=== PATIENT | male | born 1960 | race Two or more races ===

== ENCOUNTER 2023-08-28 14:14 | Inpatient (IN) | payer MEDICAID, OTHER ==
[~2023-08-28] VITALS: Ht 177.8 cm; Wt 67.5 kg
[2023-08-28 14:33] LABS: Basophils # (auto) 0 10 ^3/uL (0-0.2); Basophils % (auto) 0.2 % (0.0-2.0); Eosinophils # (auto) 0.2 10 ^3/uL (0-0.8); Eosinophils % (auto) 1.3 % (0.0-7.0); Hematocrit 51.2 % (41.0-53.0); Hemoglobin 17.2 g/dL (13.5-17.5); Lymphocytes % (auto) 8.5 % (10.0-50.0); Mean Corpuscular Hemoglobin 29.3 pg (28.0-32.0); Mean Corpuscular Hgb Conc. 33.6 g/dL (32.0-36.0); Monocytes # (auto) 0.7 10 ^3/uL (0-1.3); Monocytes % (auto) 6.3 % (0.0-12.0); Neutrophils # (auto) 9.8 10 ^3/uL (1.6-8.6); Neutrophils % (auto) 83.7 % (37.0-80.0); Nucleated Red Blood Cells % 0.1 %; Red Blood Cells 5.89 10^6/uL (4.5-5.90); White Blood Cell 11.7 10^3/uL (4.4-10.8)
[2023-08-28 14:37] LABS: Chloride 97 mmol/L (98-107); Potassium 4.1 mmol/L (3.5-5.1); Sodium 129 mmol/L (136-145)
[2023-08-28 14:38] LABS: Anion Gap 9 (5-15); Calcium 10.3 mg/dL (8.7-10.4); Carbon Dioxide 23 mmol/L (20-30)
[2023-08-28 14:44] LABS: Blood Urea Nitrogen 21 mg/dL (9-23)
[2023-08-28 15:04] LABS: Glucose 658 mg/dL (74-106)
[2023-08-28] MEDS: MORPHINE SULFATE 4 MG/ML SYR/VIAL IV ONE ×2 (15:58→20:06)
[2023-08-28] MEDS: ASPirin 81 mg TAB PO ONE (16:01)
[2023-08-28] MEDS: ONDANSETRON HCL 4 MG/2 ML VIAL IV ONE ×2 (16:02→20:06)
[2023-08-28 16:42] VITALS: PULSE 107; RESP 20; O2SAT 92
[2023-08-28] MEDS: InsuLIN REG 1unit/0.01ml Soln (100units/ml) IV ONE (16:48)
[2023-08-28 19:08] LABS: INR 1.01 (0.9-1.15); Partial Thromboplastin Time 25.1 SEC (24.5-34.5); Prothrombin Time 10.7 sec (9.3-11.8)
[2023-08-28] MEDS: SODIUM CHLORIDE 0.9% 1,000 ML IV ONE ×2 (19:17→20:14)
[2023-08-28 19:30] VITALS: PULSE 99; RESP 16; O2SAT 93
[2023-08-28] MEDS: SODIUM CHLORIDE 0.9% 1,000 ML IV SCH (20:07)
[2023-08-28] MEDS: IOHEXOL 350 MG/ML 100ML IJ ONE (20:22)
[2023-08-28] MEDS ORDERED: DEXTROSE (50%) 50ML SYRG IV PRN (21:30)
[2023-08-28 21:57] LABS: Urine Bacteria None Seen /hpf (None Seen)
[2023-08-28 22:08] LABS: Urine Blood Negative /uL (Negative); Urine Clarity Clear (Clear); Urine Color Light-Yellow (Yellow); Urine Protein, UAD TRACE (Negative); Urine Specific Gravity 1.049 (1.001-1.035); Urine Urobilinogen Normal (Negative); Urine WBC 1 /hpf (0 - 3); Urine pH 5.5 (5.0-9.0)
[2023-08-28 22:09] LABS: Basophils # (auto) 0 10 ^3/uL (0-0.2); Basophils % (auto) 0.2 % (0.0-2.0); Eosinophils # (auto) 0 10 ^3/uL (0-0.8); Eosinophils % (auto) 0.1 % (0.0-7.0); Hematocrit 37.5 % (41.0-53.0); Hemoglobin 12.3 g/dL (13.5-17.5); Lymphocytes # (auto) 0.5 10 ^3/uL (0.4-5.4); Lymphocytes % (auto) 4.3 % (10.0-50.0); Mean Corpuscular Hemoglobin 28.9 pg (28.0-32.0); Mean Corpuscular Hgb Conc. 32.8 g/dL (32.0-36.0); Mean Corpuscular Volume 88.3 fL (80.0-100.0); Monocytes # (auto) 0.4 10 ^3/uL (0-1.3); Neutrophils # (auto) 9.7 10 ^3/uL (1.6-8.6); Neutrophils % (auto) 91.4 % (37.0-80.0); Red Blood Cells 4.25 10^6/uL (4.5-5.90); White Blood Cell 10.6 10^3/uL (4.4-10.8)
[2023-08-28 22:15] LABS: Amphetamine Screen, Urine Neg (NEGATIVE); Barbiturate Scree,Urine Neg (NEGATIVE); Benzodiazephine Screen, Urine Neg (NEGATIVE); Cannabinoid Screen, Urine Neg (NEGATIVE); Cocaine Screen, Urine Neg (NEGATIVE); Opiate Scree,Urine Neg (NEGATIVE); Phencyclidine Screen, Urine Neg (NEGATIVE)
[2023-08-28] MEDS: ACCU-CHEK COMFORT CURVE STRIP VI SCH (22:19)
[2023-08-28] MEDS: InsuLIN REG 1unit/0.01ml Soln (100units/ml) SC SCH (22:25)
[2023-08-28 22:26] LABS: Alanine Aminotransferase 10 U/L (7-40); Albumin 2.7 g/dL (3.2-4.8); Alkaline Phosphatase 72 U/L (46-116); Amylase < 20 U/L (30-118); Aspartate Aminotransferase < 8 U/L (13-40); Lipase 18 U/L (12-53)
[2023-08-28 22:27] LABS: Bilirubin, Total 0.4 mg/dL (0.2-1.0); Total Protein 4.4 g/dL (5.7-8.2)
[2023-08-28] MEDS: PANTOPRAZOLE 40 MG/10 ML VIAL INJ IV SCH (22:29)
[2023-08-28] MEDS: PIPERACILLIN-TAZOB 3.375GM 100 ML IV SCH (22:34)
[2023-08-28 23:00] LABS: Bilirubin, Direct 0.2 mg/dL (<0.3)
[2023-08-28 23:07] LABS: Platelet Estimate Decreased
[2023-08-29] MEDS: MORPHINE SULFATE 4 MG/ML SYR/VIAL IV PRN (00:22)
[2023-08-29] MEDS: ONDANSETRON HCL 4 MG/2 ML VIAL IV PRN (00:22)
[2023-08-29] MEDS: PANTOPRAZOLE 40mg/50ML NS AE 50 ML IV SCH (02:37)
[2023-08-29 05:18] LABS: Anion Gap 6 (5-15); Carbon Dioxide 27 mmol/L (20-30); Chloride 105 mmol/L (98-107); Potassium 3.3 mmol/L (3.5-5.1); Sodium 138 mmol/L (136-145)
[2023-08-29 05:19] LABS: Calcium 9.8 mg/dL (8.7-10.4)
[2023-08-29 05:23] LABS: Basophils # (auto) 0 10 ^3/uL (0-0.2); Basophils % (auto) 0.4 % (0.0-2.0); Eosinophils # (auto) 0.2 10 ^3/uL (0-0.8); Eosinophils % (auto) 1.1 % (0.0-7.0); Hematocrit 46.7 % (41.0-53.0); Hemoglobin 15.7 g/dL (13.5-17.5); Lymphocytes # (auto) 1.1 10 ^3/uL (0.4-5.4); Lymphocytes % (auto) 7.6 % (10.0-50.0); Mean Corpuscular Hemoglobin 29.1 pg (28.0-32.0); Mean Corpuscular Hgb Conc. 33.7 g/dL (32.0-36.0); Mean Corpuscular Volume 86.4 fL (80.0-100.0); Monocytes % (auto) 7.1 % (0.0-12.0); Neutrophils # (auto) 11.8 10 ^3/uL (1.6-8.6); Neutrophils % (auto) 83.8 % (37.0-80.0); Red Blood Cells 5.41 10^6/uL (4.5-5.90); Red Cell Distribution Width 13.1 % (11.8-14.3); White Blood Cell 14.1 10^3/uL (4.4-10.8)
[2023-08-29 05:24] LABS: BUN/Creatinine Ratio 19.4 (10.0-20.0); Blood Urea Nitrogen 19 mg/dL (9-23)
[2023-08-29 05:32] LABS: Glucose 256 mg/dL (74-106)
[2023-08-29 07:30] VITALS: PULSE 100; RESP 23; O2SAT 93
[2023-08-29] MEDS: GASTROGRAFIN 120 ML SOL ONE (08:44)
[2023-08-29] MEDS ORDERED: QUET200T4 PO (14:30)
[2023-08-29] MEDS ORDERED: QUET50TA PO (14:30)
[2023-08-29 18:18] LABS: Hematocrit 43.8 % (41.0-53.0); Hemoglobin 14.5 g/dL (13.5-17.5)
[2023-08-29] MEDS: QUEtiapine FUMARATE 100 MG TAB PO SCH (21:02)
[2023-08-29] MEDS: PANTOPRAZOLE 40 MG/10 ML VIAL INJ IV SCH (21:03)
[2023-08-30] VITALS (8 sets, daily range): BP systolic 106–120; BP diastolic 58–68; PULSE 77–104; RESP 18–22; TEMP 97.7–98.9; O2SAT 94–99
[2023-08-30 06:06] LABS: Basophils # (auto) 0.1 10 ^3/uL (0-0.2); Basophils % (auto) 0.6 % (0.0-2.0); Eosinophils # (auto) 0.3 10 ^3/uL (0-0.8); Eosinophils % (auto) 3.6 % (0.0-7.0); Hematocrit 39.9 % (41.0-53.0); Hemoglobin 13.7 g/dL (13.5-17.5); Lymphocytes # (auto) 1.5 10 ^3/uL (0.4-5.4); Lymphocytes % (auto) 17.6 % (10.0-50.0); Mean Corpuscular Hemoglobin 29.5 pg (28.0-32.0); Mean Corpuscular Hgb Conc. 34.2 g/dL (32.0-36.0); Mean Corpuscular Volume 86.2 fL (80.0-100.0); Monocytes # (auto) 0.7 10 ^3/uL (0-1.3); Monocytes % (auto) 7.9 % (0.0-12.0); Neutrophils # (auto) 5.8 10 ^3/uL (1.6-8.6); Neutrophils % (auto) 70.3 % (37.0-80.0); Nucleated Red Blood Cells % 0.1 %; Red Blood Cells 4.63 10^6/uL (4.5-5.90); White Blood Cell 8.3 10^3/uL (4.4-10.8)
[2023-08-30 06:20] LABS: Chloride 108 mmol/L (98-107); Potassium 2.9 mmol/L (3.5-5.1); Sodium 140 mmol/L (136-145)
[2023-08-30 06:21] LABS: Anion Gap 8 (5-15); Calcium 8.8 mg/dL (8.5-10.1); Carbon Dioxide 24 mmol/L (20-30)
[2023-08-30 06:26] LABS: Blood Urea Nitrogen 16 mg/dL (9-23); Glucose 195 mg/dL (74-106)
[2023-08-30] MEDS: PIPERACILLIN-TAZOB 3.375GM 100 ML IV SCH (14:03)
[2023-08-30] MEDS: POTASSIUM CHL 20 Meq TABLET PO ONE (17:11)
[2023-08-30] MEDS: POTASSIUM CHL 20MEQ/100ML 100 ML IV ONE (17:12)
[2023-08-30] MEDS: MAGNESIUM OXIDE 400 MG TAB PO SCH (21:53)
[2023-08-31 01:00] VITALS: BP 100/68; PULSE 84; RESP 15; TEMP 97.8; O2SAT 95
[2023-08-31 05:00] VITALS: BP 96/50; PULSE 69; RESP 15; TEMP 98.1; O2SAT 95
[2023-08-31 06:40] LABS: Chloride 110 mmol/L (98-107); Potassium 3.3 mmol/L (3.5-5.1); Sodium 141 mmol/L (136-145)
[2023-08-31 06:41] LABS: Anion Gap 7 (5-15); Calcium 8.9 mg/dL (8.7-10.4); Carbon Dioxide 24 mmol/L (20-30)
[2023-08-31 06:46] LABS: BUN/Creatinine Ratio 15.6 (10.0-20.0); Blood Urea Nitrogen 12 mg/dL (9-23); Glucose 159 mg/dL (74-106)
[2023-08-31 06:47] LABS: Magnesium 1.6 mg/dL (1.6-2.6)
[2023-08-31 08:00] VITALS: PULSE 85
[2023-08-31 09:00] VITALS: BP 135/81; PULSE 85; RESP 14; TEMP 97.8; O2SAT 98
[2023-08-31 13:00] VITALS: BP 105/75; PULSE 76; RESP 16; TEMP 99; O2SAT 98
[2023-08-31] MEDS ORDERED: SENN-58 PO (13:15)
[2023-08-31] MEDS ORDERED: METF-371 PO (13:19)
[2023-08-31 17:00] VITALS: BP 120/78; PULSE 78; RESP 16; TEMP 98.5; O2SAT 98
[2023-08-31] MEDS: POTASSIUM CHL 20 Meq TABLET PO ONE (17:40)
[2023-09-01] MEDS ORDERED: MAGNESIUM OXIDE 400 MG TAB PO SCH (22:00)
== END 2023-08-31 18:30 | disposition home or self-care (01) | DRG 247 ==
LOC: ER 14:14 → EDBD 14:14 → TELE 21:27 → TELE-WESTW 08-29 18:56
PROVIDERS: ADMIT Nurse Practitioner Family; ATTEND Nurse Practitioner Family
PROC: 0D9670Z Drainage of Stomach with Drainage Device, Via Natural or Artificial Opening (ICD-10-PCS; principal; 2023-08-29)
DX: K56.600 Partial intestinal obstruction, unspecified as to cause (principal); I24.9 Acute ischemic heart disease, unspecified; K59.00 Constipation, unspecified; K92.2 Gastrointestinal hemorrhage, unspecified; K80.20 Calculus of gallbladder without cholecystitis without obstruction; E11.65 Type 2 diabetes mellitus with hyperglycemia; F17.210 Nicotine dependence, cigarettes, uncomplicated; F31.9 Bipolar disorder, unspecified; K21.9 Gastro-esophageal reflux disease without esophagitis; Z83.3 Family history of diabetes mellitus; I25.2 Old myocardial infarction; Z79.84 Long term (current) use of oral hypoglycemic drugs; Z79.4 Long term (current) use of insulin; Z79.899 Other long term (current) drug therapy
CPT/HCPCS: 36415; 71045; 71275; 74176; 74250; 76705; 80048; 80076; 80307; 81001; 82150; 82962; 83036; 83605; 83690; 83735; 84484; 85014; 85018; 85025; 85610; 85730; 86850; 86900; 86901; 93005; 99291; C9113; G0378; J1815; J2405; J2543; J3480

== ENCOUNTER 2024-08-23 03:21 | Inpatient (IN) | payer MEDICAID ==
[~2024-08-23] VITALS: Ht 177.8 cm; Wt 81.7 kg
[~2024-08-23 03:21] MED LIST: METF-371 PO; QUET200T4 PO; QUET50TA PO; SENN-58 PO
[2024-08-23] MEDS: ONDANSETRON HCL 4 MG/2 ML VIAL IV ONE ×2 (03:51→09:36)
[2024-08-23] MEDS: PANTOPRAZOLE 40 MG/10 ML VIAL INJ IV ONE (03:51)
[2024-08-23] MEDS: MORPHINE SULFATE INJ 2 MG/ml SYRG IV ONE (03:52)
--- NOTE | 2024-08-23 04:06 | ED.PDOC ---
GI ASSESSMENT HPI Comments 64-year-old male who came to ER via EMS for abdominal pain. Patient has history of diabetes, GERD, small bowel obstruction (2023). States about 2 hours prior to arrival, started complaining of diffuse abdominal pain and distention, noted episodes of nausea and vomiting, with shortness of breath and dizziness. States 2 days ago he had passage of dark tarry stools. Last bowel movement was 2 days ago. Patient unable to pass any gas. States he feels like he is having another bowel obstruction. Upon arrival paramedics patient noted to be hypotensive at 70/40 mm Hg, saturating 94% on room air, blood sugar 240. Chief Complaint: Abdominal Pain Time Seen by MD: 03:56 Reviewed Notes: Document Improvement Specialist Notes Allergies: Coded Allergies: NO KNOWN ALLERGIES (Unverified , 08/28/23) Home Meds Active Scripts Metformin Hydrochloride (Metformin Hcl) 850 Mg Tab, 1 TAB PO BID, #90 TAB 1 Refill Prov:JUSTINO DONOVAN MD 08/31/23 Senna (Senokot) 8.6 Mg Tab, 1 TAB PO BID PRN, #40 TAB Prov:JUSTINO DONOVAN MD 08/31/23 Reported Medications Quetiapine Fumerate (Seroquel) 50 Mg Tab, 200 MG PO QAM for 30 Days, MG 08/29/23 Quetiapine Fumerate (Seroquel Xr) 200 Mg Tab, 800 MG PO HS for 30 Days, MG 08/29/23 Information Source: Patient, Emergency Med Personnel Mode of Arrival: EMS Timing: Hours Duration: Since onset Prehospital treatment: Accucheck, IVF Quality: Aching Vomitus: Watery Stool: Black Severity: Moderate Recent: None Recent Hx of: Other (Small bowel obstruction) Pain Location: Diffuse Associated sign and symptoms: Nausea, Vomiting, Melena, Abdominal Pain Review of Systems REVIEW OF SYSTEMS: No fever, no chills, or fatigue HEENT: No sore throat, no earache, no congestion, no neck pain. Cardiac: No chest pain. No palpitations. Lungs: No shortness of breath, no cough. GI: (+) nausea, (+) vomiting, no diarrhea, no constipation, (+) abdominal pain : No dysuria, frequency, or urgency. No hematuria. Musculoskeletal: No joint pain , no joint swelling, no extremity edema. Skin: No rash, no itching. Neuro: No headache, no dizziness, no weakness Vital Signs Vital Signs Date Time Temp Pulse Resp B/P (MAP) Pulse Ox O2 Delivery O2 Flow Rate FiO2 08/23/24 15:00 119 20 119/88 (98) 93 08/23/24 12:00 98.5 98.5 08/23/24 08:30 Nasal Cannula* 2 28 Physical Exam General: Awake, alert and oriented. No acute distress. Skin: Skin in warm, dry and intact. Appropriate color for ethnicity. Nailbeds pink with no cyanosis. HEENT: The head is normocephalic and atraumatic. Conjunctivae are clear without exudates or hemorrhage. Sclera is non-icteric. EOM are intact. No signs of nystagmus. Eyelids are normal in appearance without swelling or lesions. Oral mucosa is pink and moist Neck: The neck is supple with normal range of motion. No JVD. Cardiac: Heart rate and rhythm are normal. No murmurs, gallops, or rubs are auscultated. Respiratory: No signs of respiratory distress. Lung sounds are clear in all lobes bilaterally without rales, rhonchi, or wheezes. Abdominal: Abdomen distended, generally tender. Diminished bowel sounds throughout. Extremities: Upper and lower extremities are atraumatic in appearance without deformity or edema. Neurological: The patient is awake, alert and oriented to person, place, and time with normal speech. Speech is clear. There is no facial asymmetry. Psychiatric: Appropriate mood and affect. Good judgement and insight. No visual or auditory hallucinations. Past Medical History PAST MEDICAL HISTORY: COPD, DM, GERD, [place] Surgical History: Appendectomy Surgical History (Other): Bowel obstruction Family History Family History: Family hx of DM, Family hx of heart jeromy Social History Smoker: Cigarettes Alcohol: Denies ETOH Use Drugs: Denies Drug Use Lives In: Home EKG EKG : Pulse Rate (adult): 109 Cardiac Rhythm: ST Comments No STEMI Was a procedure done? Was a procedure done?: No GI differential Dx Differential Diagnosis: Bowel Obstruction, Diverticular disease, Gastritis/PUD, Gastroenteritis, GI hemorrhage, Pancreatitis, UTI, Urolithiasis, Electrolyte Imbalance, Food Poisoning X-Ray, Labs, Meds, VS Vital Signs Date Time Temp Pulse Resp B/P (MAP) Pulse Ox O2 Delivery O2 Flow Rate FiO2 08/23/24 15:00 119 20 119/88 (98) 93 08/23/24 12:00 107 08/23/24 12:00 98.5 106 19 121/83 (96) 91 98.5 08/23/24 10:00 99 17 106/71 (83) 91 08/23/24 08:30 97.9 101 24 94/66 (75) 97 97.9 08/23/24 08:30 101 24 97 Nasal Cannula* 2 28 08/23/24 07:00 103 21 85/59 (68) 96 08/23/24 06:30 103 20 95/59 (71) 98 08/23/24 05:30 102 19 96/72 (80) 98 08/23/24 05:15 98 21 97/65 (76) 98 08/23/24 04:45 100 20 83/51 (62) 95 08/23/24 04:30 103 20 79/48 (58) 95 08/23/24 04:22 107 24 73/46 08/23/24 04:15 108 24 73/47 (56) 95 08/23/24 04:06 109 08/23/24 04:00 110 32 86/53 (64) 95 08/23/24 03:52 108 16 80/54 08/23/24 03:40 98.1 110 16 88/66 (73) 97 98.1 08/23/24 03:40 Nasal Cannula* 2 28 08/23/24 03:28 109 08/23/24 03:26 98.1 110 16 88/66 (73) 97 98.1 Lab Test 08/23/24 06:18 08/23/24 04:08 08/23/24 03:49 Range/Units POC Glucose 249 H 318 H 70-106 mg/dl White Blood Count 19.6 H 4.4-10.8 10^3/uL Red Blood Count 5.60 4.5-5.90 10^6/uL Hemoglobin 16.9 13.5-17.5 g/dL Hematocrit 48.6 41.0-53.0 % Mean Corpuscular Volume 86.7 80.0-100.0 fL Mean Corpuscular Hemoglobin 30.2 28.0-32.0 pg Mean Corpuscular Hemoglobin Concent 34.8 32.0-36.0 g/dL Red Cell Distribution Width 13.4 11.8-14.3 % Platelet Count 255 140-450 10^3/uL Mean Platelet Volume 10.2 6.9-10.8 fL Neutrophils (%) (Auto) 80.2 H 37.0-80.0 % Lymphocytes (%) (Auto) 11.2 10.0-50.0 % Monocytes (%) (Auto) 6.7 0.0-12.0 % Eosinophils (%) (Auto) 1.3 0.0-7.0 % Basophils (%) (Auto) 0.6 0.0-2.0 % Neutrophils # (Auto) 15.8 H 1.6-8.6 10 ^3/uL Lymphocytes # (Auto) 2.2 0.4-5.4 10 ^3/uL Monocytes # (Auto) 1.3 0-1.3 10 ^3/uL Eosinophils # (Auto) 0.2 0-0.8 10 ^3/uL Basophils # (Auto) 0.1 0-0.2 10 ^3/uL Nucleated Red Blood Cells 0.1 % Sodium Level 136 136-145 mmol/L Potassium Level 4.0 3.5-5.1 mmol/L Chloride Level 103 98-107 mmol/L Carbon Dioxide Level 18 L 20-31 mmol/L Anion Gap 15 5-15 Blood Urea Nitrogen 25 H 9-23 mg/dL Creatinine 2.18 H 0.700-1.30 mg/dL Glomerular Filtration Rate Calc 33 >90 mL/min BUN/Creatinine Ratio 11.5 10.0-20.0 Serum Glucose 310 H 74-106 mg/dL Lactic Acid Level 1.8 0.4-2.0 mmol/L Calcium Level 11.1 H 8.7-10.4 mg/dL Total Bilirubin 0.4 0.2-1.0 mg/dL Aspartate Amino Transferase (AST) 25 13-40 U/L Alanine Aminotransferase (ALT) 31 7-40 U/L Alkaline Phosphatase 132 H 46-116 U/L Total Protein 8.7 H 5.7-8.2 g/dL Albumin 5.5 H 3.2-4.8 g/dL Lipase 25 12-53 U/L Current Medications Medications (Trade) Dose Ordered Sig/Jaz Route Start Time Stop Time Status Last Admin Morphine Sulfate 2 mg ONCE ONCE IV 08/23/24 03:45 08/23/24 03:46 DC 08/23/24 03:52 Ondansetron HCl (Zofran) 4 mg ONCE ONCE IV 08/23/24 03:45 08/23/24 03:46 DC 08/23/24 03:51 Pantoprazole Sodium (Protonix) 40 mg ONCE ONCE IV 08/23/24 03:45 08/23/24 03:46 DC 08/23/24 03:51 Sodium Chloride 1,000 ml @ 1,000 mls/hr Q1H ONCE IV 08/23/24 04:30 08/23/24 05:29 DC 08/23/24 04:25 Sodium Chloride 1,000 ml @ 130 mls/hr Q7H42M ONCE IV 08/23/24 05:45 08/23/24 13:26 DC 08/23/24 06:08 Ceftriaxone Sodium 50 ml @ 100 mls/hr ONCE ONCE IV 08/23/24 05:45 08/23/24 06:14 DC 08/23/24 06:08 Metronidazole 100 ml @ 100 mls/hr ONCE ONCE IV 08/23/24 05:45 08/23/24 06:44 DC 08/23/24 06:08 Vancomycin HCl 200 ml @ 200 mls/hr ONCE ONCE IV 08/23/24 05:45 08/23/24 06:44 DC 08/23/24 09:26 Diagnostic Test (Pha) (Accu-Chek Comfort Curve T) 1 strip ONCE STAT 08/23/24 05:48 08/23/24 05:51 DC 08/23/24 06:18 Diagnostic Test (Pha) (Accu-Chek Comfort Curve T) 1 strip ONCE ONCE 08/23/24 07:00 08/23/24 07:01 DC 08/23/24 06:57 Insulin Human Regular (InsuLIN R) 4 units ONCE ONCE IV 08/23/24 06:00 08/23/24 06:01 DC 08/23/24 06:21 Morphine Sulfate 4 mg ONCE ONCE IV 08/23/24 09:15 08/23/24 09:32 DC 08/23/24 15:33 Ondansetron HCl (Zofran) 4 mg ONCE ONCE IV 08/23/24 09:15 08/23/24 09:32 DC 08/23/24 09:36 Time of 1ST Reevaluation: 03:52 Reevaluation 1ST: Unchanged Patient Education/Counseling: Need For Follow Up Family Education/Counseling: Need For Follow Up Departure 1 Departure Time of Disposition: 05:51 Impression: Primary Impression: Small bowel obstruction Disposition: 09 ADMITTED INPATIENT Condition: Stable Comments 54-year-old male with a history of SBO presents with abdominal pain. Workup reveals small bowel obstruction. IV fluids, antibiotics, NG tube initiated in the emergency department. Surgical consult placed. Patient is stabilized in the ED. Patient admitted to hospitalist service for further treatment, evaluation and monitoring. Extensive evaluation was performed in attempt to identify or rule out: (See differential diagnosis section) The following tests were ordered, and results were reviewed by me and discussed with patient: (See diagnostic results section) The following test were independently interpreted by me: EKG I reviewed and agreed with the following test results read by other providers: N/A I reviewed the following notes from the pt's past medical encounters: Encounter August 2023 for SBO Additional information was gathered from interviewing the following independent historians: EMS personnel Discussion of management or test interpretation with external physician/other qualified health care technician: N/A Addressed an acute or chronic illness that poses a threat to life or bodily function: Small-bowel obstruction, sepsis Decision regarding hospitalization or escalation of hospital level of care: Risk and benefits of admission for further treatment of patient's condition was considered. Due to patient's current clinical condition, high risk of decline and poor outcome if discharged and need for further inpatient management and monitoring, patient will be admitted to the hospital. Discussed with patient. Drug therapy requiring intensive monitoring for toxicity: IV contrast Parenteral controlled substances: IV morphine Decision regarding elective major surgery with identified patient or procedure risk factors: N/A Decision regarding emergency major surgery: N/A Decision not to resuscitate or to de-escalate care because of poor prognosis: N/A Diagnosis or treatment significantly limited by social determinants of health: N/A Critical Care Note Critical Care Time?: Yes (35 min-critical care time only) Critical care comment: Hypotensive Stability Stability form required: No Heart Score Heart Score: Heart Score Response (Comments) Value History N/A 0 EKG N/A 0 Age N/A 0 Risk Factors N/A 0 Troponin N/A 0 Total 0 I personally scribed for PATRICK GREEN MD ([email or web address]) on 08/23/24 at 04:06. Electronically submitted by Tirso Luis ([email or web address]). PATRICK GREEN MD August 23, 2024 04:06
[2024-08-23 04:07] LABS: Basophils # (auto) 0.1 10 ^3/uL (0-0.2); Basophils % (auto) 0.6 % (0.0-2.0); Eosinophils # (auto) 0.2 10 ^3/uL (0-0.8); Eosinophils % (auto) 1.3 % (0.0-7.0); Hematocrit 48.6 % (41.0-53.0); Hemoglobin 16.9 g/dL (13.5-17.5); Lymphocytes # (auto) 2.2 10 ^3/uL (0.4-5.4); Lymphocytes % (auto) 11.2 % (10.0-50.0); Mean Corpuscular Hemoglobin 30.2 pg (28.0-32.0); Mean Corpuscular Hgb Conc. 34.8 g/dL (32.0-36.0); Mean Corpuscular Volume 86.7 fL (80.0-100.0); Monocytes # (auto) 1.3 10 ^3/uL (0-1.3); Monocytes % (auto) 6.7 % (0.0-12.0); Neutrophils # (auto) 15.8 10 ^3/uL (1.6-8.6); Neutrophils % (auto) 80.2 % (37.0-80.0); Nucleated Red Blood Cells % 0.1 %; Platelet Count (auto) 255 10^3/uL (140-450); Red Cell Distribution Width 13.4 % (11.8-14.3); White Blood Cell 19.6 10^3/uL (4.4-10.8)
[2024-08-23] MEDS: SODIUM CHLORIDE 0.9% 1,000 ML IV ONE ×2 (04:25→06:08)
[2024-08-23] MEDS: IOHEXOL 300 MG/ML 100ML BOTTLE IJ ONE (04:28)
[2024-08-23 04:31] LABS: Alanine Aminotransferase 31 U/L (7-40); Anion Gap 15 (5-15); Chloride 103 mmol/L (98-107); Sodium 136 mmol/L (136-145)
[2024-08-23 04:32] LABS: Aspartate Aminotransferase 25 U/L (13-40); BUN/Creatinine Ratio 11.5 (10.0-20.0); Bilirubin, Total 0.4 mg/dL (0.2-1.0)
[2024-08-23 04:41] LABS: Albumin 5.5 g/dL (3.2-4.8); Alkaline Phosphatase 132 U/L (46-116); Blood Urea Nitrogen 25 mg/dL (9-23); Calcium 11.1 mg/dL (8.7-10.4); Carbon Dioxide 18 mmol/L (20-31); Glucose 310 mg/dL (74-106); Total Protein 8.7 g/dL (5.7-8.2)
[2024-08-23 04:54] LABS: Lipase 25 U/L (12-53)
--- NOTE | 2024-08-23 05:43 | DVH ---
Exam: CT CT AB PEL WITH IV CON ONLY History: Abdominal pain, history SBO COMPARISON: None Technique: Multidetector spiral CT of the abdomen and pelvis was performed from lung bases to pubic s ymphysis. Intravenous contrast was administered during this examination. Portal venous imaging was obtained. Axial, coronal and sagittal multiplanar reformats were performed by the technologist on a [employer] workstation. Radiation Dose : 1. Abdomen/Pelvis: CTDIvol 15.85 mGy, DLP 1016.45 mGy*cm. CONTRAST: Type of contrast: Omniscan 300 Contrast injected: 100 ml Contrast ingested: None Findings: Lung Bases: Moderate bibasilar atelectasis, [id number]. Otherwise, no acute or significa nt lung base finding. Normal heart size. No pleural or pericardial effusion. Liver: The liver is normal in size. No focal lesions. Normal hepatic vascular enhancement. Gallbladder and Biliary Tree: Cholelithiasis. Spleen: Unremarkable Pancreas: The pancreas is normal in appearance without focal lesions or abnormal enhancement. Adrenal Glands: Unremarkable Kidneys: No hydronephrosis. Bladder: Unremarkable Bowel: Stomach is markedly distended with an air-fluid level noted. Several moderately dilated segmen ts of small bowel are noted throughout the abdomen exhibiting air-fluid levels with maximum luminal d iameter measuring up to 5.2 cm. An apparent relatively abrupt zone of transition of caliber is noted within the right lower quadrant corresponding to mid to distal ileum. No identifiable obstructive eddie ology. The appendix is not visualized; however, no secondary findings of acute appendicitis identifie d. Ascites: Absent Lymphadenopathy: No mesenteric, retroperitoneal or periportal lymphadenopathy. Abdominal Wall and Mesentery: Unremarkable. Vasculature: The visualized abdominal aorta is normal in size and caliber. Atherosclerotic vascular c alcifications. Abdominal and pelvic vessels demonstrate normal enhancement. Pelvic Organs: Unremarkable Musculoskeletal: No aggressive focal bony lesions, acute fractures or dislocation. IMPRESSION: 1. High-grade small-bowel obstruction with apparent relatively abrupt zone of transition of caliber w ithin the right lower quadrant corresponding to mid to distal ileum. No obstructive etiology is ident ified. 2. Marked gastric distention likely secondary to to small bowel obstruction. 3. Cholelithiasis. Radiation optimization: All CT scans at this facility use at least one of these dose optimization ovidio hniques: automated exposure control mA and/or kV adjustment per patient size (includes targeted exam s where dose is matched to clinical indication) or iterative reconstruction.
[2024-08-23] MEDS ORDERED: DEXTROSE (50%) 50ML SYRG IV PRN ×3 (06:00→15:15)
[2024-08-23] MEDS: metroNIDAZOLE 500MG/100ML 100 ML IV ONE (06:08)
[2024-08-23] MEDS: cefTRIAXone 1GM/50ML D5W 50 ML IV ONE (06:08)
[2024-08-23] MEDS: ACCU-CHEK COMFORT CURVE STRIP VI STA (06:18)
[2024-08-23] MEDS: InsuLIN REG 1unit/0.01ml Soln (100units/ml) IV ONE (06:21)
[2024-08-23] MEDS: ACCU-CHEK COMFORT CURVE STRIP VI ONE (06:57)
--- NOTE | 2024-08-23 07:14 | ECG ---
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
[2024-08-23 08:30] VITALS: PULSE 101; RESP 24; O2SAT 97
[2024-08-23] MEDS: VANCOMYCIN 1GM/200ML PM 200 ML IV ONE (09:26)
--- NOTE | 2024-08-23 12:42 | DVHINCON2 ---
Date of service: August 23, 2024 Allergies: Coded Allergies: NO KNOWN ALLERGIES (Unverified , 08/28/23) Home Meds Active Scripts Metformin Hydrochloride (Metformin Hcl) 850 Mg Tab, 1 TAB PO BID, #90 TAB 1 Refill Prov:JUSTINO DONOVAN MD 08/31/23 Senna (Senokot) 8.6 Mg Tab, 1 TAB PO BID PRN, #40 TAB Prov:JUSTINO DONOVAN MD 08/31/23 Reported Medications Quetiapine Fumerate (Seroquel) 50 Mg Tab, 200 MG PO QAM for 30 Days, MG 08/29/23 Quetiapine Fumerate (Seroquel Xr) 200 Mg Tab, 800 MG PO HS for 30 Days, MG 08/29/23 Current Medications Current Medications Medications (Trade) Dose Ordered Sig/Jaz Route PRN Reason Start Time Stop Time Status Last Admin Diagnostic Test (Pha) (Accu-Chek Comfort Curve T) 1 strip ONCE STAT 08/23/24 05:48 08/23/24 05:51 DC 08/23/24 06:18 Dextrose 50 ml PRN PRN IV Blood Sugar LESS THAN 60 08/23/24 06:00 Dextrose 50 ml PRN PRN IV Blood Sugar LESS THAN 60 08/23/24 06:00 Vital Signs Vital Signs Date Time Temp Pulse Resp B/P (MAP) Pulse Ox O2 Delivery O2 Flow Rate FiO2 08/23/24 12:00 107 08/23/24 10:00 17 106/71 (83) 91 08/23/24 08:30 97.9 97.9 08/23/24 08:30 Nasal Cannula* 2 28 Labs/Diagnostic Data Labs Test 08/23/24 06:18 08/23/24 03:49 Range/Units POC Glucose 249 H 70-106 mg/dl White Blood Count 19.6 H 4.4-10.8 10^3/uL Red Blood Count 5.60 4.5-5.90 10^6/uL Hemoglobin 16.9 13.5-17.5 g/dL Hematocrit 48.6 41.0-53.0 % Mean Corpuscular Volume 86.7 80.0-100.0 fL Mean Corpuscular Hemoglobin 30.2 28.0-32.0 pg Mean Corpuscular Hemoglobin Concent 34.8 32.0-36.0 g/dL Red Cell Distribution Width 13.4 11.8-14.3 % Platelet Count 255 140-450 10^3/uL Mean Platelet Volume 10.2 6.9-10.8 fL Neutrophils (%) (Auto) 80.2 H 37.0-80.0 % Lymphocytes (%) (Auto) 11.2 10.0-50.0 % Monocytes (%) (Auto) 6.7 0.0-12.0 % Eosinophils (%) (Auto) 1.3 0.0-7.0 % Basophils (%) (Auto) 0.6 0.0-2.0 % Neutrophils # (Auto) 15.8 H 1.6-8.6 10 ^3/uL Lymphocytes # (Auto) 2.2 0.4-5.4 10 ^3/uL Monocytes # (Auto) 1.3 0-1.3 10 ^3/uL Eosinophils # (Auto) 0.2 0-0.8 10 ^3/uL Basophils # (Auto) 0.1 0-0.2 10 ^3/uL Nucleated Red Blood Cells 0.1 % Sodium Level 136 136-145 mmol/L Potassium Level 4.0 3.5-5.1 mmol/L Chloride Level 103 98-107 mmol/L Carbon Dioxide Level 18 L 20-31 mmol/L Anion Gap 15 5-15 Blood Urea Nitrogen 25 H 9-23 mg/dL Creatinine 2.18 H 0.700-1.30 mg/dL Glomerular Filtration Rate Calc 33 >90 mL/min BUN/Creatinine Ratio 11.5 10.0-20.0 Serum Glucose 310 H 74-106 mg/dL Lactic Acid Level 1.8 0.4-2.0 mmol/L Calcium Level 11.1 H 8.7-10.4 mg/dL Total Bilirubin 0.4 0.2-1.0 mg/dL Aspartate Amino Transferase (AST) 25 13-40 U/L Alanine Aminotransferase (ALT) 31 7-40 U/L Alkaline Phosphatase 132 H 46-116 U/L Total Protein 8.7 H 5.7-8.2 g/dL Albumin 5.5 H 3.2-4.8 g/dL Lipase 25 12-53 U/L Assessment [id number] AFEBRILE VSS ABD SOFT DISTENDED NON ACUTE NO BM FLATUS+ R/O SBO ILEUS KEEP NPO NG LCS CLOSE OBSERVATION CONSIDER EMERGENT SURGERY BASED ON ONGOING EVAL Plan discussed with: Patient GABBI NAVARRO MD August 23, 2024 12:42
--- NOTE | 2024-08-23 15:12 | DVHHP2 ---
History of Present Illness Reason for Visit: Abdominal pain History of Present Illness 64-year-old male with a known history of diabetes mellitus type 2, bipolar disorder, GERD initially presented to the hospital with the abdominal pain and abdominal distention found to have small-bowel obstruction. Patient is already being seen by General surgery and currently NPO, NG to low wall intermittent suctioning. Patient is feeling much better after NG tube placement. Patient's denies any fevers chills denies any previous episode of similar kind. Cardiovascular: HTN GI: GERD Endocrine: Diabetes Past Surgical History: None Family History: None Smoke: No ALCOHOL: none Review of Systems Review of Systems Twelve review of system are negative besides mentioned above. Allergies: Coded Allergies: NO KNOWN ALLERGIES (Unverified , 08/28/23) Medications Current Medications Medications Dose Ordered Sig/Jaz Route Start Time Stop Time Status Last Admin Dose Admin Dextrose 50 ml PRN PRN IV 08/23/24 06:00 Dextrose 50 ml PRN PRN IV 08/23/24 06:00 Exam Vital Signs Vital Signs Date Time Temp Pulse Resp B/P (MAP) Pulse Ox O2 Delivery O2 Flow Rate FiO2 08/23/24 12:00 107 08/23/24 12:00 98.5 19 121/83 (96) 91 98.5 08/23/24 08:30 Nasal Cannula* 2 28 Exam HEENT pupils are reactive Neck is supple CV is S1-S2 regular rate and rhythm Respiratory bilateral diminished breath sounds bases GI positive bowel sounds positive abdominal distention no guarding no rigidity nontender Extremity no edema [employer] no motor deficit Labs/Xrays Labs Test 08/23/24 06:18 08/23/24 03:49 Range/Units POC Glucose 249 H 70-106 mg/dl White Blood Count 19.6 H 4.4-10.8 10^3/uL Red Blood Count 5.60 4.5-5.90 10^6/uL Hemoglobin 16.9 13.5-17.5 g/dL Hematocrit 48.6 41.0-53.0 % Mean Corpuscular Volume 86.7 80.0-100.0 fL Mean Corpuscular Hemoglobin 30.2 28.0-32.0 pg Mean Corpuscular Hemoglobin Concent 34.8 32.0-36.0 g/dL Red Cell Distribution Width 13.4 11.8-14.3 % Platelet Count 255 140-450 10^3/uL Mean Platelet Volume 10.2 6.9-10.8 fL Neutrophils (%) (Auto) 80.2 H 37.0-80.0 % Lymphocytes (%) (Auto) 11.2 10.0-50.0 % Monocytes (%) (Auto) 6.7 0.0-12.0 % Eosinophils (%) (Auto) 1.3 0.0-7.0 % Basophils (%) (Auto) 0.6 0.0-2.0 % Neutrophils # (Auto) 15.8 H 1.6-8.6 10 ^3/uL Lymphocytes # (Auto) 2.2 0.4-5.4 10 ^3/uL Monocytes # (Auto) 1.3 0-1.3 10 ^3/uL Eosinophils # (Auto) 0.2 0-0.8 10 ^3/uL Basophils # (Auto) 0.1 0-0.2 10 ^3/uL Nucleated Red Blood Cells 0.1 % Sodium Level 136 136-145 mmol/L Potassium Level 4.0 3.5-5.1 mmol/L Chloride Level 103 98-107 mmol/L Carbon Dioxide Level 18 L 20-31 mmol/L Anion Gap 15 5-15 Blood Urea Nitrogen 25 H 9-23 mg/dL Creatinine 2.18 H 0.700-1.30 mg/dL Glomerular Filtration Rate Calc 33 >90 mL/min BUN/Creatinine Ratio 11.5 10.0-20.0 Serum Glucose 310 H 74-106 mg/dL Lactic Acid Level 1.8 0.4-2.0 mmol/L Calcium Level 11.1 H 8.7-10.4 mg/dL Total Bilirubin 0.4 0.2-1.0 mg/dL Aspartate Amino Transferase (AST) 25 13-40 U/L Alanine Aminotransferase (ALT) 31 7-40 U/L Alkaline Phosphatase 132 H 46-116 U/L Total Protein 8.7 H 5.7-8.2 g/dL Albumin 5.5 H 3.2-4.8 g/dL Lipase 25 12-53 U/L Assessment/Plan Assessment/Plan 64-year-old male with a known history of diabetes mellitus type 2 insulin dependent, hypertension, bipolar disorder initially presented to hospital with abdominal pain nausea and vomiting found to have 1. Small-bowel obstruction 2. Abdominal pain with the nausea and vomiting secondary to 1. 3. Diabetes mellitus type 2 4. Bipolar disorder -admitted to telemetry, keep NPO, NG to low wall suctioning, empirical IV antibiotics -general surgery consultation for evaluation for any surgical intervention. Plan discussed with: Patient My Orders Orders - ASHLEY KEENAN MD Procedure Category Date Status Time Admit ADMIT 08/23/24 Transmitted 15:05 Code Status CODE 08/23/24 Transmitted 15:05 Ondansetron Hcl PHA 08/23/24 Transmitted (Zofran) 15:15 Complete Blood Count LAB 08/24/24 Verified 04:00 Comprehensive LAB 08/24/24 Verified Metabolic Panel 04:00 Npo (Nothing By DIET 08/23/24 Transmitted Mouth) Diet Dinner Condition: Fair AMANDA 08/23/24 Transmitted 15:05 Enoxaparin Sodium [facility] 08/24/24 Transmitted (Lovenox) 10:00 Morphine Sulfate PHA 08/23/24 Transmitted Injection 15:15 Nitroglycerin PHA 08/23/24 Transmitted Sublingual (Ntrostat 15:15 Morphine Sulfate PHA 08/23/24 Transmitted Injection 15:15 Stat Ekg For Chest [facility] 08/23/24 Transmitted Pain 15:05 Notify Md Of Changes [facility] 08/23/24 Transmitted From Base 15:05 Metalizing Supervisor For [facility] 08/23/24 Transmitted 24 Hours 15:05 Emergency Dysrhythmia [facility] 08/23/24 Transmitted Protocol 15:05 Rhythm Strips Once [facility] 08/23/24 Transmitted Every Shift 15:05 Oxygen By Nasal RT 08/23/24 Transmitted Cannula 15:05 Zosyn Extended PHA 08/23/24 Transmitted Infusion 18:00 D5w/Sod Chlo 0.9% Ns PHA 08/23/24 Transmitted 15:15 Glucose Blood PHA 08/23/24 Transmitted (Accu-Chek Comfort 18:00 Mild Sliding Scale PHA 08/23/24 Transmitted Npo - Q6hr 18:00 Dextrose 50% Syringe PHA 08/23/24 Transmitted 15:15 Date of Service: August 23, 2024 Billing Provider: ASHLEY KEENAN MD Common Visit Codes: NOT BILLABLE ASHLEY KEENAN MD August 23, 2024 15:12
[2024-08-23] MEDS ORDERED: NITROGLYCERIN 0.4 MG SL TAB SL PRN (15:15)
[2024-08-23] MEDS ORDERED: MORPHINE SULFATE INJ 2 MG/ml SYRG IV PRN (15:15)
[2024-08-23] MEDS: ONDANSETRON HCL 4 MG/2 ML VIAL IV PRN (15:30)
[2024-08-23] MEDS: MORPHINE SULFATE 4 MG/ML SYR/VIAL IV ONE (15:33)
[2024-08-23] MEDS: PIPERACILLIN-TAZOB 3.375GM 100 ML IV ONE (16:00)
[2024-08-23 19:30] VITALS: PULSE 107; RESP 22; O2SAT 97
[2024-08-23] MEDS: D5W/SOD CHLO 0.9% 1,000 ML IV SCH (19:30)
--- NOTE | 2024-08-23 19:39 | DVHINCON2 ---
DATE OF CONSULTATION: 08/23/2024 HISTORY OF PRESENT ILLNESS: This patient is 64 years old, coming in with abdominal pain, nausea, vomiting, no hematemesis, melena, no bleeding per rectum. PAST MEDICAL HISTORY: Diabetes, hypertension, and sleeping disorder. PAST SURGICAL HISTORY: Open appendectomy during childhood. PHYSICAL EXAMINATION: VITAL SIGNS: Afebrile, stable signs. GENERAL: No evidence of pallor, cyanosis or jaundice. NECK: Supple and nontender with no thyromegaly or lymphadenopathy. CHEST AND LUNGS: Clear. HEART: Within normal limits. ABDOMEN: Soft, distended, but not acutely tender. No rebound. EXTREMITIES: Unremarkable. NEUROLOGIC: He is intact. CLINICAL IMPRESSION: Rule out partial small-bowel obstruction, rule out ileus, possibility of intra-abdominal adhesions from his previous surgery. PLAN: At this point, he needs to be kept n.p.o. and needs to low continuous suction and management conservatively with the possibility of the obstruction resolving and if there is no resolution, then a Gastrografin study might be considered to determine the need for surgery. MD KARAN Schultz/VU TID: [id number] RECEIPT: [id number] cc: Rocael Sharma
[2024-08-23] MEDS: ACCU-CHEK COMFORT CURVE STRIP VI SCH (20:40)
[2024-08-23] MEDS: InsuLIN REG 1unit/0.01ml Soln (100units/ml) SC SCH (20:58)
[2024-08-23 21:13] VITALS: BP 147/86; PULSE 103; PULSE 104; RESP 17; RESP 20; TEMP 97.8; O2SAT 97
[2024-08-23] MEDS: PIPERACILLIN-TAZOB 3.375GM 100 ML IV SCH (21:24)
[2024-08-23] MEDS: MORPHINE SULFATE INJ 2 MG/ml SYRG IV PRN (21:25)
[2024-08-23] MEDS: LORazepam 2MG/ML-1ML VIAL IV PRN (22:02)
[2024-08-23] MEDS ORDERED: PANT40T PO (23:14)
[2024-08-23] MEDS ORDERED: ATOR20TA50 PO (23:14)
[2024-08-24] VITALS (7 sets, daily range): BP systolic 101–148; BP diastolic 62–88; PULSE 81–98; RESP 14–20; TEMP 97.5–98.4; O2SAT 94–96
--- NOTE | 2024-08-24 06:50 | DVH ---
EXAM: XR Chest, 1 View CLINICAL INDICATION: NGT placement TECHNIQUE: Frontal view of the chest. COMPARISON: XY CHEST XRAY 1 VIEW on DOS: 08/29/23, XY CHEST PORTABLE on DOS: 08/29/23, XY CHEST MENA BLE on DOS: 08/28/23 FINDINGS: LUNGS AND PLEURAL SPACES: Left basilar atelectasis or pneumonia. No pneumothorax. HEART: Unremarkable. No cardiomegaly. MEDIASTINUM: Unremarkable. Normal mediastinal contour. BONES/JOINTS: Unremarkable. No acute fracture. TUBES, LINES AND DEVICES: Enteric tube tip in the stomach. OTHER FINDINGS: . . . IMPRESSION: Left basilar atelectasis or pneumonia.
[2024-08-24 07:54] LABS: Alanine Aminotransferase 30 U/L (7-40); Albumin 4.7 g/dL (3.2-4.8); Alkaline Phosphatase 110 U/L (46-116); Anion Gap 11 (5-15); Aspartate Aminotransferase 29 U/L (13-40); BUN/Creatinine Ratio 18.9 (10.0-20.0); Calcium 9.4 mg/dL (8.7-10.4); Carbon Dioxide 23 mmol/L (20-31); Potassium 3.5 mmol/L (3.5-5.1); Sodium 142 mmol/L (136-145); Total Protein 7.4 g/dL (5.7-8.2)
[2024-08-24 07:55] LABS: Bilirubin, Total 0.5 mg/dL (0.2-1.0); Blood Urea Nitrogen 27 mg/dL (9-23); Chloride 108 mmol/L (98-107); Glucose 165 mg/dL (74-106)
[2024-08-24 08:02] LABS: Basophils # (auto) 0.1 10 ^3/uL (0-0.2); Basophils % (auto) 0.7 % (0.0-2.0); Eosinophils # (auto) 0.2 10 ^3/uL (0-0.8); Eosinophils % (auto) 2.2 % (0.0-7.0); Hematocrit 42.4 % (41.0-53.0); Hemoglobin 14.9 g/dL (13.5-17.5); Lymphocytes # (auto) 1.8 10 ^3/uL (0.4-5.4); Lymphocytes % (auto) 18.9 % (10.0-50.0); Mean Corpuscular Hemoglobin 30.3 pg (28.0-32.0); Mean Corpuscular Volume 86.5 fL (80.0-100.0); Monocytes # (auto) 0.8 10 ^3/uL (0-1.3); Monocytes % (auto) 8.2 % (0.0-12.0); Neutrophils # (auto) 6.6 10 ^3/uL (1.6-8.6); Nucleated Red Blood Cells % 0.1 %; Platelet Count (auto) 215 10^3/uL (140-450); Red Cell Distribution Width 13.1 % (11.8-14.3); White Blood Cell 9.5 10^3/uL (4.4-10.8)
[2024-08-24] MEDS: ENOXAPARIN SOD 30 MG/0.3 ML SYRINGE SC SCH (10:24)
[2024-08-24] MEDS: PANTOPRAZOLE 40 MG/10 ML VIAL INJ IV SCH (11:48)
[2024-08-24] MEDS: PIPERACILLIN-TAZOB 3.375GM 100 ML IV SCH (13:10)
[2024-08-24] MEDS: GASTROGRAFIN 120 ML SOL ONE (15:55)
--- NOTE | 2024-08-24 16:10 | DVHPN2 ---
Subjective Overnight events noted. Currently small bowel series with Gastrografin is pending. Reviewed: Care Plan Changes from previous H/P or p: No Changes Objective Vitals Vital Signs Date Time Temp Pulse Resp B/P (MAP) Pulse Ox O2 Delivery O2 Flow Rate FiO2 08/24/24 13:00 97.6 90 20 101/71 (81) 96 97.6 08/24/24 08:00 Room Air* 0 21 Intake/Output Intake and Output 08/24/24 07:00 Intake Total 300 ml Output Total 4300 ml Balance -4000 ml Intake Oral 0 ml IV Total 300 ml Output Urine Total 0 ml Gastric Drainage Total 4300 ml # Voids 3 # Bowel Movements 1 Exam HEENT pupils are reactive Neck is supple CV is S1-S2 regular rate and rhythm Respiratory diminished BS on bases GI positive bowel sound, abdominal distention is much better 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 no 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 Medications Current Medications Medications Dose Ordered Sig/Jaz Route Start Time Stop Time Status Last Admin Dose Admin Ondansetron HCl 4 mg Q4HP PRN IV 08/23/24 15:15 08/24/24 12:09 4 MG Morphine Sulfate 2 mg Q4HPRN PRN IV 08/23/24 15:15 08/24/24 12:05 2 MG Nitroglycerin 0.4 mg Q5MINP PRN SL 08/23/24 15:15 Morphine Sulfate 2 mg Q30M PRN IV 08/23/24 15:15 Dextrose/Sodium Chloride 1,000 ml @ 100 mls/hr Q10H IV 08/23/24 15:15 08/24/24 01:37 100 MLS/HR Diagnostic Test (Pha) 1 strip Q6HR 08/23/24 18:00 08/24/24 11:55 1 STRIP Insulin Human Regular Q6HR SC 08/23/24 18:00 08/23/24 20:58 3 UNITS Dextrose 50 ml UD PRN IV 08/23/24 15:15 Lorazepam 2 mg Q6HPRN PRN IV 08/23/24 16:00 08/24/24 13:09 2 MG Piperacillin Sod/ Tazobactam Sod 100 ml @ 25 mls/hr Q8HR IV 08/24/24 14:00 08/24/24 13:10 25 MLS/HR Enoxaparin Sodium 40 mg DAILY SC 08/25/24 10:00 Pantoprazole Sodium 40 mg DAILY@1130 IV 08/24/24 11:30 08/24/24 11:48 40 MG Laboratory Results Laboratory Tests 08/24/24 07:00 Chemistry Test 08/24/24 07:00 Albumin 4.7 g/dL (3.2-4.8) Calcium Level 9.4 mg/dL (8.7-10.4) Total Protein 7.4 g/dL (5.7-8.2) LFT Test 08/24/24 07:00 Alanine Aminotransferase (ALT) 30 U/L (7-40) Alkaline Phosphatase 110 U/L (46-116) Aspartate Amino Transferase (AST) 29 U/L (13-40) Total Bilirubin 0.5 mg/dL (0.2-1.0) Microbiology Microbiology Date/Time Source Procedure Growth Status 08/23/24 06:28 Blood Blood Culture - Preliminary NO GROWTH AFTER 24 HOURS OF INCUBATION. Resulted Assessment/Plan Assessment/Plan 64-year-old male with a known history of diabetes mellitus type 2 insulin dependent, hypertension, bipolar disorder initially presented to hospital with abdominal pain nausea and vomiting found to have 1. Small-bowel obstruction 2. Abdominal pain with the nausea and vomiting secondary to 1. 3. Diabetes mellitus type 2 4. Bipolar disorder 5. Chronic tobacco use disorder, nicotine cessation counseling has been discussed -keep NPO, NG to low wall suctioning, empirical IV antibiotics -follow up small bowel series with Gastrografin -general surgery follow up. Plan discussed with: Patient My Orders Orders - ASHLEY KEENAN MD Procedure Category Date Status Time Education - Smoking AMANDA 08/23/24 In Process Cessation 23:11 * Smoking Cessation CONS 08/23/24 Transmitted Consult 23:11 * Dietary Consult CONS 08/23/24 Transmitted 23:11 Chest Xray 1 View XY 08/24/24 Resulted 02:18 Piperacillin-Tazob PHA 08/24/24 In Process 3.375gm (Zosyn 3.375g 14:00 Enoxaparin Sodium PHA 08/25/24 In Process (Lovenox) 10:00 Pantoprazole PHA 08/24/24 In Process (Protonix) 11:30 Small Bowel Series-W XY 08/24/24 Logged Gastrogra 15:28 Date of Service: August 24, 2024 Billing Provider: ASHLEY KEENAN MD Common Visit Codes: NOT BILLABLE ASHLEY KEENAN MD August 24, 2024 16:10
--- NOTE | 2024-08-24 18:46 | DVH ---
Procedure: XY SMALL BOWEL SERIES-W GASTROGRA Reason for study/Clinical History: r/o small bowel obstruction Comparison Study: XY SMALL BOWEL SERIES-W GASTROGRA on DOS: 08/29/23 Technique: Single contrast small bowel series performed. 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 Contrast is identified within the colon by 3. This represents a normal small bowel transit time.
[2024-08-25] VITALS (7 sets, daily range): BP systolic 103–135; BP diastolic 62–78; PULSE 81–99; RESP 17–20; TEMP 97.4–98.4; O2SAT 95–98
[2024-08-25] MEDS: ENOXAPARIN SOD 40 MG/0.4 ML SYRINGE SC SCH (08:40)
--- NOTE | 2024-08-25 15:58 | DVHDS2 ---
Discharge Summary Date of Admission August 23, 2024 at 15:05 Date of Discharge: August 25, 2024 Labs/Diagnostic Data: Laboratory Results Test 08/25/24 05:31 08/24/24 07:00 08/23/24 03:49 POC Glucose 148 mg/dl (70-106) White Blood Count 9.5 10^3/uL (4.4-10.8) Red Blood Count 4.90 10^6/uL (4.5-5.90) Hemoglobin 14.9 g/dL (13.5-17.5) Hematocrit 42.4 % (41.0-53.0) Mean Corpuscular Volume 86.5 fL (80.0-100.0) Mean Corpuscular Hemoglobin 30.3 pg (28.0-32.0) Mean Corpuscular Hemoglobin Concent 35.0 g/dL (32.0-36.0) Red Cell Distribution Width 13.1 % (11.8-14.3) Platelet Count 215 10^3/uL (140-450) Mean Platelet Volume 10.0 fL (6.9-10.8) Neutrophils (%) (Auto) 70.0 % (37.0-80.0) Lymphocytes (%) (Auto) 18.9 % (10.0-50.0) Monocytes (%) (Auto) 8.2 % (0.0-12.0) Eosinophils (%) (Auto) 2.2 % (0.0-7.0) Basophils (%) (Auto) 0.7 % (0.0-2.0) Neutrophils # (Auto) 6.6 10 ^3/uL (1.6-8.6) Lymphocytes # (Auto) 1.8 10 ^3/uL (0.4-5.4) Monocytes # (Auto) 0.8 10 ^3/uL (0-1.3) Eosinophils # (Auto) 0.2 10 ^3/uL (0-0.8) Basophils # (Auto) 0.1 10 ^3/uL (0-0.2) Nucleated Red Blood Cells 0.1 % Sodium Level 142 mmol/L (136-145) Potassium Level 3.5 mmol/L (3.5-5.1) Chloride Level 108 mmol/L (98-107) Carbon Dioxide Level 23 mmol/L (20-31) Anion Gap 11 (5-15) Blood Urea Nitrogen 27 mg/dL (9-23) Creatinine 1.43 mg/dL (0.700-1.30) Glomerular Filtration Rate Calc 55 mL/min (>90) BUN/Creatinine Ratio 18.9 (10.0-20.0) Serum Glucose 165 mg/dL (74-106) Calcium Level 9.4 mg/dL (8.7-10.4) Total Bilirubin 0.5 mg/dL (0.2-1.0) Aspartate Amino Transferase (AST) 29 U/L (13-40) Alanine Aminotransferase (ALT) 30 U/L (7-40) Alkaline Phosphatase 110 U/L (46-116) Total Protein 7.4 g/dL (5.7-8.2) Albumin 4.7 g/dL (3.2-4.8) Lactic Acid Level 1.8 mmol/L (0.4-2.0) Lipase 25 U/L (12-53) Other Laboratory Tests 08/24/24 07:00 Brief Hx & Hospital Course: 64-year-old male with a known history of diabetes mellitus type 2 insulin dependent, hypertension, bipolar disorder initially presented to hospital with abdominal pain nausea and vomiting found to have SMALL-BOWEL OBSTRUCTION. PATIENT WAS KEPT NPO STARTED ON NG TUBE FOLLOW WHILE SUCTIONING AND EMPIRICAL ANTIBIOTICS. GENERAL SURGERY WAS CONSULTED. PATIENT UNDERWENT GASTROGRAFIN SERIES WHICH SHOWS NO EVIDENCE OF ANY BOWEL RESECTION. PATIENT IS CURRENTLY PASSING GAS AND HAS TWO BOWEL MOVEMENTS. GENERAL SURGERY WAS CONSULTED WHO RECOMMENDED SOFT DIET AND PATIENT CAN BE DISCHARGED IF TOLERATES. PATIENT IS BEING DISCHARGED UNDER STABLE CONDITION. Condition at Discharge: Stable Final Diagnosis/Problems List 64-year-old male with a known history of diabetes mellitus type 2 insulin dependent, hypertension, bipolar disorder initially presented to hospital with abdominal pain nausea and vomiting found to have 1. Small-bowel obstruction , RESOLVED 2. Abdominal pain with the nausea and vomiting secondary to 1. 3. Diabetes mellitus type 2 4. Bipolar disorder 5. Chronic tobacco use disorder, nicotine cessation counseling has been discussed Discharge Disposition: Home SNF Discharge Will this Physician continue t: No Discharge Instruct/Medications Diet: Cardiac 2g Na,low cholest Diet comment: 1999 ADA DIET Activity: No Restrictions, As Tolerated Follow Up/Referral: FOLLOW UP WITH THE PCP IN 1-2 WEEKS Medications: RESUME HOME MEDICATIONS Discharge Statement: "Patient was advised to return to the ER or call 911 if any headaches, dizziness, shortness of breath, chest pain, abdominal pain, bleeding, fevers, or worsening of medical condition. Patient was counseled about treatment plan, medications, possible side effects, patient�verbalized understanding. All questions were answered to the best of my ability. This discharge took greater then 30 minutes in planning, reviewing documentation, counseling the patient, and discussing with other team members." ASSESSMENT ASSESSMENT Assessment 64-year-old male with a known history of diabetes mellitus type 2 insulin dependent, hypertension, bipolar disorder initially presented to hospital with abdominal pain nausea and vomiting found to have 1. Small-bowel obstruction , RESOLVED 2. Abdominal pain with the nausea and vomiting secondary to 1. 3. Diabetes mellitus type 2 4. Bipolar disorder 5. Chronic tobacco use disorder, nicotine cessation counseling has been discussed Date of Service: August 25, 2024 Billing Provider: ASHLEY KEENAN MD Common Visit Codes: NOT BILLABLE ASHLEY KEENAN MD August 25, 2024 15:58
== END 2024-08-25 17:21 | disposition home or self-care (01) | DRG 247 ==
LOC: ER 03:21 → EDBD 03:21 → OVERFLOW 15:05 → TELE-EAST 21:10
PROVIDERS: ADMIT Internal Medicine; ATTEND Internal Medicine
PROC: 0D9670Z Drainage of Stomach with Drainage Device, Via Natural or Artificial Opening (ICD-10-PCS; principal; 2024-08-23)
DX: K56.609 Unspecified intestinal obstruction, unspecified as to partial versus complete obstruction (principal); N17.0 Acute kidney failure with tubular necrosis; R65.11 Systemic inflammatory response syndrome (SIRS) of non-infectious origin with acute organ dysfunction; E11.9 Type 2 diabetes mellitus without complications; F31.9 Bipolar disorder, unspecified; K21.9 Gastro-esophageal reflux disease without esophagitis; F17.210 Nicotine dependence, cigarettes, uncomplicated; J44.9 Chronic obstructive pulmonary disease, unspecified; I10 Essential (primary) hypertension; Z79.84 Long term (current) use of oral hypoglycemic drugs; Z79.899 Other long term (current) drug therapy; Z83.3 Family history of diabetes mellitus; Z90.49 Acquired absence of other specified parts of digestive tract; Z71.6 Tobacco abuse counseling; Z79.4 Long term (current) use of insulin
CPT/HCPCS: 36415; 71045; 74177; 74250; 80053; 82962; 83605; 83690; 85025; 87040; 93005; 96361; 96374; 96375; G0378; J1815; J2405; J2470; J2543; J3490